=== PATIENT | female | born 1955 | race Caucasian/White ===

== ENCOUNTER 2022-10-24 07:58 | Outpatient (CLI) | payer MEDICARE, OTHER, SELFPAY ==
[2022-10-24 10:27] LABS: Albumin* 4.3 g/dL (3.3-5.0); Chloride* 106 mmol/L (96-114); Sodium* 139 mmol/L (135-149)
[2022-10-24 10:28] LABS: Potassium* 3.8 mmol/L (3.6-5.1)
[2022-10-24 10:29] LABS: Cholesterol* 264 mg/dL (90-199)
[2022-10-24 10:30] LABS: Alanine Aminotransferase* 23 U/L (4-35); Alkaline Phosphatase* 76 U/L (40-150); Aspartate Amino Transferase* 33 U/L (12-35); Bilirubin Total* 0.8 mg/dL (0.1-1.5); Blood Urea Nitrogen* 16 mg/dL (7-30); Carbon Dioxide* 25 mmol/L (20-32); Creatinine* 0.9 mg/dL (0.5-1.5); Estimated Glomerular Filt Rate 70 ml/min; Glucose* 102 mg/dL (60-115); Total Protein* 7.3 g/dL (6.0-8.3); Triglycerides* 65 mg/dL (40-149)
[2022-10-24 10:31] LABS: Calcium* 9.5 mg/dL (8.4-10.6); HDL Cholesterol* 82 mg/dL (>=50); LDL Cholesterol Calculated 169 mg/dL (<100)
== END 2022-10-24 07:59 | disposition home or self-care (01) ==
LOC: NFLDREF 07:59
PROVIDERS: PCP Family Medicine; Visit Provider Family Medicine
DX: Z13.6 Encounter for screening for cardiovascular disorders (principal)
CPT/HCPCS: 80053; 80061

== ENCOUNTER 2022-11-07 13:45 | Outpatient (CLI) | payer MEDICARE, OTHER, SELFPAY ==
--- NOTE | 2022-11-07 13:40 | CRLHL7_ITS ---
For Patients: As a result of the Cures Act, medical imaging exams and procedure reports are released immediately into your electronic medical record. You may view this report before your referring provider. If you have questions, please contact your health care provider. BILATERAL SCREENING MAMMOGRAM WITH COMPUTER-AIDED DETECTION AND TOMOSYNTHESIS TECHNIQUE: CC and MLO views were obtained. These mammographic images have been obtained using full-field digital technique. These mammographic images were interpreted with the benefit of computer-aided detection. Breast Tomosynthesis was used in this interpretation. COMPARISON FILM: 10/09/21, 10/03/20, 08/10/19. FINDINGS: The breasts are heterogeneously dense, which may obscure small masses IMPRESSION: There is no radiographic evidence for malignancy. ASSESSMENT: BI-RADS Category 1: Negative RECOMMENDATION: Routine screening mammogram in 1 year. A lay language report of this examination will be provided to the patient. Chente Moraes M.D. Diagnostic Radiologist [email or web address] JALEN/delores Transcribed: 2:23 p.mMaryam estrella/Dictated by: Chente Moraes MD @ 11/10/2022 9:10:00 AM (Electronically Signed)
== END 2022-11-07 13:46 | disposition home or self-care (01) ==
LOC: MAMMO 13:50
PROVIDERS: PCP Family Medicine; Visit Provider Family Medicine
DX: Z12.31 Encounter for screening mammogram for malignant neoplasm of breast (principal); R92.2 Inconclusive mammogram
CPT/HCPCS: 77063; 77067

== ENCOUNTER 2023-01-26 10:48 | Outpatient (CLI) | payer MEDICARE, OTHER, SELFPAY | END 2023-01-26 10:49 | disposition home or self-care (01) | LOC: NFLDREF 01-28 10:09 | PROVIDERS: PCP Family Medicine; Referring Provider Family Medicine; Visit Provider Family Medicine | DX: E78.5 Hyperlipidemia, unspecified (principal) | CPT/HCPCS: 80061 ==

== ENCOUNTER 2023-06-18 14:29 | Outpatient (CLI) | payer MEDICARE, OTHER, SELFPAY | END 2023-06-18 14:30 | disposition home or self-care (01) | LOC: NFLDREF 14:30 | PROVIDERS: PCP Family Medicine; Visit Provider Family Medicine | DX: I10 Essential (primary) hypertension (principal); E78.5 Hyperlipidemia, unspecified | CPT/HCPCS: 80048 ==

== ENCOUNTER 2024-01-22 07:37 | Outpatient (CLI) | payer MEDICARE, OTHER, SELFPAY | END 2024-01-22 07:38 | disposition home or self-care (01) | LOC: NFLDREF 02-18 14:31 | PROVIDERS: PCP Family Medicine; Referring Provider Family Medicine; Visit Provider Family Medicine | DX: I10 Essential (primary) hypertension (principal); E78.5 Hyperlipidemia, unspecified; M85.851 Other specified disorders of bone density and structure, right thigh; Z86.39 Personal history of other endocrine, nutritional and metabolic disease | CPT/HCPCS: 80053; 80061; 82306 ==

== ENCOUNTER 2024-02-05 13:24 | Outpatient (CLI) | payer MEDICARE, OTHER, SELFPAY ==
--- NOTE | 2024-02-05 13:40 | MM_ITS ---
Patient: VIRGINIE ANDINO Facility:?[facility] Patient ID:?[id number] Site Patient ID:?[id number]. Site :?[id number] Study:?XRay-Breast Bilateral 3D W/CAD-02/05/2024 3:21:54 PM Ordering Physician:VIRGINIE AGUILA Final Report: BILATERAL SCREENING MAMMOGRAM WITH COMPUTER-AIDED DETECTION AND TOMOSYNTHESIS TECHNIQUE: CC and MLO views were obtained. These mammographic images have been obtained using full-field digital technique. These mammographic images were interpreted with the benefit of computer-aided detection. Breast Tomosynthesis was used in this interpretation. COMPARISON FILM: 11/07/22, 10/09/21, 10/03/20. FINDINGS: The breasts are heterogeneously dense, which may obscure small masses. IMPRESSION: There is no radiographic evidence for malignancy. ASSESSMENT: BI-RADS Category 2: Benign RECOMMENDATION: Routine screening mammogram in 1 year. A lay language report of this examination will be provided to the patient. Chente Moraes M.D. Diagnostic Radiologist [email or web address] DSM/sp R& Transcribed: 3:23 p.m. SP/Dictated by: Chente Moraes MD @ 02/08/2024 10:53:00 AM Signed by:?Chente Moraes MD @02/08/2024 3:59:24 PM (Electronic Signature)
== END 2024-02-05 13:25 | disposition home or self-care (01) ==
LOC: MAMMO 13:27
PROVIDERS: PCP Family Medicine; Visit Provider Family Medicine
DX: Z12.31 Encounter for screening mammogram for malignant neoplasm of breast (principal); R92.2 Inconclusive mammogram
CPT/HCPCS: 77063; 77067

== ENCOUNTER 2024-12-01 13:33 | Outpatient (CLI) | payer MEDICARE, OTHER, SELFPAY | END 2024-12-01 13:34 | disposition home or self-care (01) | PROVIDERS: PCP Family Medicine; Visit Provider Orthopaedic Surgery | DX: M25.511 Pain in right shoulder (principal); S46.811A Strain of other muscles, fascia and tendons at shoulder and upper arm level, right arm, initial encounter; M75.21 Bicipital tendinitis, right shoulder; M94.211 Chondromalacia, right shoulder; Z98.890 Other specified postprocedural states | CPT/HCPCS: 73221 ==

== ENCOUNTER 2024-12-13 09:04 | Outpatient (CLI) | payer MEDICARE, OTHER, SELFPAY | END 2024-12-13 09:05 | disposition home or self-care (01) | PROVIDERS: PCP Family Medicine; Visit Provider Family Medicine | DX: I10 Essential (primary) hypertension (principal); Z01.818 Encounter for other preprocedural examination | CPT/HCPCS: 80048 ==

== ENCOUNTER 2024-12-22 07:31 | Day surgery (SDC) | payer MEDICARE, OTHER, SELFPAY ==
[2024-12-22] VITALS (13 sets, daily range): BP systolic 108–161; BP diastolic 67–92; PULSE 55–75; RESP 11–20; TEMP 36.1–36.8; O2SAT 92–98; BMI 29.0
[2024-12-22] MEDS: LACTATED RINGERS 1000 ML 1,000 ML 100 ML IV ×2 (08:10→09:58)
[2024-12-22] MEDS: SODIUM CHLORIDE 0.9 % (FLUSH) 10 ML SYRINGE IVF (08:10)
[2024-12-22] MEDS: CELECOXIB 200 MG CAPSULE PO (08:20)
[2024-12-22] MEDS: OXYCODONE (CR) 10 MG TAB.ER.12H PO (08:20)
[2024-12-22] MEDS: ACETAMINOPHEN 500 MG TABLET 1000 MG PO (08:20)
[2024-12-22] MEDS: fentaNYL 100 MCG/2 ML inj IVP (08:32)
[2024-12-22] MEDS: MIDAZOLAM HCL 1 MG/ML inj IVP (08:32)
--- NOTE | 2024-12-22 08:40 | SUR.PREOP ---
TIME?OUT:? right shoulder, 0830 PT/RN/MDA?VERIFICATION?OF?SURGICAL?SITE,?PROCEDURE,?AND?CONSENT OBTAINED?PRIOR?TO?INVASIVE?PROCEDURE.
[2024-12-22] MEDS: CEFAZOLIN 2 GM INJ IVP (09:15)
[2024-12-22] MEDS: EPINEPHrine 1 MG in SODIUM CHLORIDE IRRIG SOLUTION 3,000 ML 9003 MG IRRIGATION (09:18)
--- NOTE | 2024-12-22 10:18 | P.ORPRC_ITS ---
Procedure Note Date of procedure: 12/22/24 Procedure: PREOPERATIVE DIAGNOSIS: Right shoulder upper subscap tear, recurrent rotator cuff tear, biceps tendinopathy, labral tearing POSTOPERATIVE DIAGNOSIS: Right shoulder upper subscap tear, recurrent rotator cuff tear, biceps tendinopathy, labral tearing NAME OF OPERATION: Right shoulder arthroscopic limited glenohumeral debridement, revision subacromial decompression, revision mini open anterior supraspinatus repair, upper subscap repair, biceps tenodesis SURGEON: Flaco Childers MD FUR FLOOR WORKER: Kj Lance PA-C ANESTHESIA: Supraclavicular block plus general endotracheal ESTIMATED BLOOD LOSS: 5 mL COMPLICATIONS: None SPECIMENS: None DRAINS: None PREOPERATIVE ANTIBIOTICS: Ancef 2 grams INDICATIONS: The patient is a 69-year-old with a history of right shoulder pain secondary to the above diagnoses. She has a history of mini open rotator cuff repair in 2017. Despite appropriate non operative management, they continue to have symptoms. Operative intervention was recommended. The risks, benefits and expected outcomes were discussed in detail. These included but were not limited to: Infection, bleeding, injury to blood vessel or nerve, venous thromboembolism. All questions were answered to their satisfaction. PROCEDURE: A supraclavicular block was placed by Anesthesia. General anesthesia was administered. The patient was placed in the high beach chair position. The right shoulder was prepped and draped in the usual sterile fashion. The glenohumeral joint was infiltrated with 20 mL of normal saline with epinephrine. The previously placed posterior portal was utilized, the arthroscope was introduced. The anterior portal was established, Diagnostic arthroscopy was performed with findings as follows: The biceps has a significant amount of intra-articular tendinopathy and a minimal amount of medial subluxation. The anterior, posterior and superior labrum shows age- appropriate degenerative tearing. Articular surfaces on the humeral head and glenoid are normal. There are no loose bodies. The anterior insertion of the supraspinatus has a high-grade partial-thickness recurrent tear. Sutures retained in the upper part of the subscap tendon were debrided with the shaver. Likewise, the anterior insertion of the supraspinatus was debrided with shaver. Finally, the labrum was circumferentially debrided with the shaver. The biceps was tenotomized with the arthroscopic scissors. The stump was resected with the shaver. The arthroscope was placed in the subacromial space, the lateral portal was established. The Arthrex [place] was used to dissect the acromion free. The AC joint was exposed. Revision acromioplasty was performed with the bur in the posterior portal. The bur was then placed in the lateral portal and the lateral and anterior aspect of the acromion were resected. The distal clavicle resection did not require revision. The bursal surface of the anterior insertion of the supraspinatus is quite thin and nearly fully torn. Arthroscopic instruments were removed. The previously placed lateral incision was utilized. Subcutaneous dissection was taken with electrocautery to the deltoid. The deltoid was divided in line with its fibers. The static retractor was placed. The scar in the subacromial space was mobilized with blunt digital dissection and the Natalio. The few remaining fibers of the anterior insertion of the supraspinatus were released with the scalpel. Devitalized tendon was sharply debrided. The biceps was delivered into the wound. A whipstitch with a FiberLink was placed with the scorpion. The proximal portion was resected. We placed an inverted mattress suture tape in the upper subscap and a FiberLink in the leading edge of the supraspinatus. These 3 sutures were placed on a SwiveLock anchor to repair the anterior supraspinatus, upper subscap and biceps tenodesis. The suture on the eyelet was passed through the leading edge of the supra and tied resulting in a simple suture. This provides an anatomic, watertight repair of the rotator cuff. There is no tension on the repair with the shoulder at 0? abduction. The wound was irrigated with normal saline off the pump. The deltoid was repaired with an 0 Vicryl in an interrupted [id number]-rb-eguot fashion. Subcutaneous tissues were closed with a 3-0 Vicryl. Skin was closed with a 3-0 Monocryl in a subcuticular fashion. A dry dressing and sling were applied. Sponge and needle counts were correct x2. The patient tolerated the procedure well. There were no apparent complications. They were carefully transferred to the hospital bed and taken to the postanesthesia care unit in satisfactory condition. PLAN: The patient will be discharged to home. No active range of motion of the shoulder will be allowed for 6 weeks postoperatively. They can work on active range of motion of the elbow, wrist and fingers. They will follow up in the office next week for a wound check and an AP and transscapular Y-view of the shoulder prior to being seen.
--- NOTE | 2024-12-22 10:36 | P.ANES_ITS ---
Anesthesia Charges Start Date/Time Anesthesia Start Date: 12/22/24 Anesthesia Start Time: 09:04 Stop Date/Time Anesthesia Stop Date: 12/22/24 Anesthesia Stop Time: 10:50 Coding CPT Codes CPT Codes: ANESTH SURGERY OF SHOULDER - 53297 ([id number]) P2 - PATIENT W/MILD SYST DISEASE, QK - SKI GUIDE 2-4 CNCRNT ANES PROC, QX - TMR TEACHER SVC W/ MD MED DIRECTION
--- NOTE | 2024-12-22 10:36 | W.ANESCHARGE ---
Anesthesia Charges Start Date/Time Anesthesia Start Date: 12/22/24 Anesthesia Start Time: 09:04 Stop Date/Time Anesthesia Stop Date: 12/22/24 Anesthesia Stop Time: 10:50 Coding CPT Codes CPT Codes: ANESTH SURGERY OF SHOULDER - 64638 ([id number]) P2 - PATIENT W/MILD SYST DISEASE, QK - SURVEYOR HELPER 2-4 CNCRNT ANES PROC, QX - BINDING CEMENTER FRENCH CORD SVC W/ MD MED DIRECTION
--- NOTE | 2024-12-22 10:37 | P.NB_ITS ---
Nerve Block Nerve Block Time Seen by Provider: 08:38 Date Seen: 12/22/24 Type of block requested by surgeon for post-operative analgesia: supraclavicular Side: right Time out performed: Yes Verification of patient name: Yes Verification of date of : Yes Site marking: site marked Name of person performing procedure: Edgardo Continuous monitoring Was continuous monitoring of O2 sat, B/P, cardiac cath technologist, recorded every 15 minutes?: Yes Procedure Checklist: sterile prep, needles and gloves Ultrasound guided. Images saved: Yes Medications given in 5ml increments after negative aspiration: Ropivicaine %: 0.5 mL: 20 Needle gauge: 22 Precedex (mcg): 25 Patient tolerated procedure well: Yes Block Charges Block Charge (with Pro Fee): Brachial Plexus Use of Ultrasound Machine for Block: Yes- US Guidance/pain block
--- NOTE | 2024-12-22 10:51 | P.ANES_ITS ---
Anesthesia Charges Start Date/Time Anesthesia Start Date: 12/22/24 Anesthesia Start Time: 09:04 Stop Date/Time Anesthesia Stop Date: 12/22/24 Anesthesia Stop Time: 10:50 Coding CPT Codes CPT Codes: ANESTH SURGERY OF SHOULDER - 75355 ([id number]) P2 - PATIENT W/MILD SYST DISEASE, QK - TUMBLING AND ROLLING SUPERVISOR 2-4 CNCRNT ANES PROC, QX - ASSOCIATE PROFESSOR OF MUSICOLOGY SVC W/ MD MED DIRECTION
--- NOTE | 2024-12-22 10:51 | W.ANESCHARGE ---
Anesthesia Charges Start Date/Time Anesthesia Start Date: 12/22/24 Anesthesia Start Time: 09:04 Stop Date/Time Anesthesia Stop Date: 12/22/24 Anesthesia Stop Time: 10:50 Coding CPT Codes CPT Codes: ANESTH SURGERY OF SHOULDER - 81974 ([id number]) P2 - PATIENT W/MILD SYST DISEASE, QK - PHYSICAL TESTING SUPERVISOR 2-4 CNCRNT ANES PROC, QX - CORRECTIONAL CASE MANAGER SVC W/ MD MED DIRECTION
== END 2024-12-22 12:30 | disposition home or self-care (01) ==
PROVIDERS: PCP Family Medicine; Visit Provider Orthopaedic Surgery
PROC: (CPT 23412; principal; 2024-12-22 09:00)
DX: M75.101 Unspecified rotator cuff tear or rupture of right shoulder, not specified as traumatic (principal); M75.21 Bicipital tendinitis, right shoulder; S43.431A Superior glenoid labrum lesion of right shoulder, initial encounter; G89.18 Other acute postprocedural pain
CPT/HCPCS: 29826; 29828; 29822; 29824; 23412; 01630; 64415; 76942; A9270; C1713; J0171; J0690; J1100; J2250; J2371; J2405; J2704; J2795; J3010; J3490; J7120

== ENCOUNTER 2025-01-27 08:18 | Outpatient (CLI) | payer MEDICARE, OTHER, SELFPAY | END 2025-01-27 08:19 | disposition home or self-care (01) | LOC: NFLDREF 01-31 16:59 | PROVIDERS: PCP Family Medicine; Referring Provider Family Medicine; Visit Provider Family Medicine | DX: I10 Essential (primary) hypertension (principal); E78.5 Hyperlipidemia, unspecified; M85.80 Other specified disorders of bone density and structure, unspecified site; M81.0 Age-related osteoporosis without current pathological fracture | CPT/HCPCS: 80053; 80061; 82306 ==

== ENCOUNTER 2025-02-24 15:00 | Outpatient (RCR) | payer MEDICARE, OTHER, SELFPAY ==
--- NOTE | 2025-01-03 15:28 | PT.OPEX ---
PT [place] Outpatient Eval PT [facility] Outpatient Eval Start: 01/03/25 08:35 Freq: Status: Active Protocol: Document 01/03/25 15:27 NAINA (Rec: 01/03/25 15:28 NAINA [id number]) E-signed By Denisse Cleary, PT Physical Therapy Outpatient Evaluation Insurance Information Recert Due Date 04/03/25 Insurance Name Medicare B Medical Diagnosis R shoulder pain, R shoulder impaired ROM Treating Diagnosis post right shoulder arthroscopy, limited glenohumeral debridement, revision subacromial decompression, revision mini open anterior supraspinatus repair, upper subscap repair, biceps tenodesis on 12/22/2024. Referring MD Dr. Arguelles Subjective Subjective Shoulder surgery on 12/22/24. She had a major virus, with high fever p surgery. Had a skin rash on shoulder surgery and is on 4 antibiotics/day and prednisone. 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 She is active and likes to walk with and dog. 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 Prior RCR in January 2017 p fall playing Tennis in [place]. She did not tear prior repairs. She is cautios of moving rm and using sling as instructed. 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 [employer] RECE[employer] Precautions Treatment Precautions/Contraindications No AROM for 6 weeks post-op Latex allergy post-op rash Weight Bearing Status Non-Weight Bearing Therapy Limitations/Systems Review Not Limited Objective Other/Pertinent Objective CERVICAL ROM WNL SHOULDER ROM Flexion: R 90 PROM, L 153 AROM Abduction: R 90 scaption PROM, L 160 ARPM Internal Rotation: R 60 PROM, L T 10 External Rotation: R L PROM to 0, L C7 NECK/SHOULDER MMT: Deep neck flexor endurance test: Shoulder shrug: R NT L 5/5 Shoulder flexion: R NT L 4+/5 Shoulder abduction: R NT L 4+/ 5 Shoulder External Rotation: R NT L 4+/5 Shoulder Internal Rotation: R NT L 5/5 Elbow flexion: R NT L 5/5 Elbow extension R NT L 5/5 Functional Test Performed & Score QUICK DASH 79.5% Assessment Assessment/Impression Pt is a 69 yr old female s/p right shoulder arthroscopy, limited glenohumeral debridement, revision subacromial decompression, revision mini open anterior supraspinatus repair, upper subscap repair, biceps tenodesis on 12/22/2024. She is healing as expected. Had minimal pain c PROM at eval. She is wearing sling and provided with PROM activities. She will progress through post-op protocol with goal to resume resistance training to keep bone density and healthy tissue in post-menopausal female. Primary Functional Limitations all R arm use, donning clothing, grooming hair, toilet hygiene, carrying laundry/groceries. Plan of Care Rehabilitation Potential Excellent Physical Therapy Goals Pt to be indep lift 8# OH for IADLs in 4 months. Pt to complete HEP indep in 8 weeks PT c IR and ext to clasp bra behind back in 12 weeks Pt to complete 5 min OH time c R arm for grooming hair in 12 weeks. Pt to demonstrate 150 degrees shoulder flexion AROM in standing in 8 weeks. Treatment Plan/Direct Interventions Electrical Stimulation,Manual Therapy,Neuromuscular Re-ed, Self-Care/Home Management, Therapeutic Activities, Therapeutic Exercises Frequency/Duration 1-2x/week for 12 weeks Patient Will Be Discharged From Therapy Completion of LTG(s),Skills Plateau,Independent w/HEP, Independently Progressing Evaluation Billing Untimed Code Treatment Minutes 35 PT Eval No Charge No Complexity Low Certification Information Initial Certification Date 01/03/25 Ending Certification Date 04/03/25 Provider Signature Required Yes Provider Signature Shows Agreement With POC & Medical Necessity Physician NPI Number Write NPI# Here Physician Comment/Change : Physician Signature & Date Requested Please Sign/Date Here
== END 2025-03-01 14:40 | disposition home or self-care (01) ==
PROVIDERS: PCP Family Medicine; Visit Provider Orthopaedic Surgery
DX: Z48.89 Encounter for other specified surgical aftercare (principal); Z51.89 Encounter for other specified aftercare
CPT/HCPCS: 97110; 97140; 97161

== ENCOUNTER 2025-03-13 14:53 | Outpatient (CLI) | payer MEDICARE, OTHER, SELFPAY ==
--- NOTE | 2025-03-13 15:00 | CRLHL7_ITS ---
For Patients: As a result of the Century Cures Act, medical imaging exams and procedure reports are released immediately into your electronic medical record. You may view this report before your referring provider. If you have questions, please contact your health care provider. INDICATION: BILATERAL SCREENING MAMMOGRAM, ASYMPTOMATIC 69 Y/O FEMALE COMPARISON: 02/05/2024, 11/07/2022, 10/09/2021 TECHNIQUE: Digital mammogram in CC and MLO projections including computer-aided detection (CAD) and tomosynthesis. BREAST COMPOSITION: The breasts are heterogeneously dense, which may obscure small masses. FINDINGS: No suspicious findings. ASSESSMENT: BI-RADS 2 Benign RECOMMENDATION: Annual screening mammogram. A lay language report of this examination will be provided to the patient. Dictated by: Chente Moraes MD @ 03/21/2025 12:25:03 (Electronically Signed)
== END 2025-03-13 14:54 | disposition home or self-care (01) ==
LOC: MAMMO 14:53
PROVIDERS: PCP Family Medicine; Visit Provider Family Medicine
DX: Z12.31 Encounter for screening mammogram for malignant neoplasm of breast (principal); R92.333 Mammographic heterogeneous density, bilateral breasts
CPT/HCPCS: 77063; 77067

== ENCOUNTER 2025-05-11 08:02 | Outpatient (CLI) | payer MEDICARE, OTHER, SELFPAY ==
--- NOTE | 2025-05-11 09:04 | P.ANES_ITS ---
Anesthesia Charges Start Date/Time Anesthesia Start Date: 05/11/25 Anesthesia Start Time: 08:35 Stop Date/Time Anesthesia Stop Date: 05/11/25 Anesthesia Stop Time: 09:03 Coding CPT Codes CPT Codes: ANES LWR INTST SCR COLSC - 04206 ([id number]) P2 - PATIENT W/MILD SYST DISEASE, QZ - SPLITTING MACHINE OPERATOR HELPER SVC W/O AMUSEMENT EQUIPMENT OPERATOR BY
--- NOTE | 2025-05-11 09:04 | W.ANESCHARGE ---
Anesthesia Charges Start Date/Time Anesthesia Start Date: 05/11/25 Anesthesia Start Time: 08:35 Stop Date/Time Anesthesia Stop Date: 05/11/25 Anesthesia Stop Time: 09:03 Coding CPT Codes CPT Codes: ANES LWR INTST SCR COLSC - 78995 ([id number]) P2 - PATIENT W/MILD SYST DISEASE, QZ - TIMING INSPECTOR SVC W/O WOOL PRESSER BY
== END 2025-05-11 08:03 | disposition home or self-care (01) ==
LOC: OP CLINIC 08:03
PROVIDERS: PCP Family Medicine; Visit Provider Internal Medicine
DX: Z12.11 Encounter for screening for malignant neoplasm of colon (principal); Z86.0100 Personal history of colon polyps, unspecified
CPT/HCPCS: 00812; 45378; J2704